=== PATIENT | female | born 1985 | race Two or more races ===

== ENCOUNTER 2024-02-21 13:59 | Emergency (ER) | payer OTHER ==
[~2024-02-21] VITALS: Ht 162.6 cm; Wt 60.3 kg
[2024-02-21 17:22] LABS: HEMATOCRIT 33.3 % (36.0-45.00); HEMOGLOBIN 11.2 g/dL (12.0-15.00); MEAN CELL VOLUME 81.7 fL (80.00-100.00); MEAN CORPUSCULAR HEMOGLOBIN 27.5 pg (27.00-32.0); MEAN CORPUSCULAR HGB CONC 33.7 g/dl (32.0-36.0); PLATELET COUNT 233 K/uL (150-450); RED BLOOD COUNT 4.07 M/uL (4.00-6.00); RED CELL DISTRIBUTION WIDTH 15.6 % (11.5-14.5)
[2024-02-21 18:34] LABS: URINE APPEARANCE Clear; URINE BILIRRUBIN Negative (NEGATIVE); URINE BLOOD Trace; URINE COLOR Yellow; URINE GLUCOSE Negative (NEGATIVE); URINE LEUKOCYTE Small; URINE NITRATE Negative; URINE PROTEIN Negative (NEGATIVE); URINE UROBILINOGEN 0.2 E.U./dl
[2024-02-21 18:38] LABS: URINE BACTERIA 818.8 uL (0.0-1933); URINE EPITHELIAL CELLS 34.9 uL (0.0-38.8); URINE RBC 2.5 uL (0.0-20.8); URINE WBC 106.8 uL (0.0-23.2)
== END 2024-02-21 20:40 | disposition home or self-care (01) ==
LOC: ER 14:00
PROVIDERS: General Practice
DX: N93.9 Abnormal uterine and vaginal bleeding, unspecified (principal)